=== PATIENT | female | born 1975 ===

== ENCOUNTER → 2017-05-29 | Outpatient (CLI) | payer BC | LOC: SLR 11:00 | PROVIDERS: ATTEND Specialist | DX: G47.30 Sleep apnea, unspecified (principal); R40.0 Somnolence | CPT/HCPCS: 95810 ==

== ENCOUNTER 2017-05-30 11:00 | Outpatient (CLI) | payer BC | END 2017-05-30 11:01 | disposition home or self-care (01) | LOC: SLR 11:00 | PROVIDERS: ATTEND Specialist | DX: G47.33 Obstructive sleep apnea (adult) (pediatric) (principal); R40.0 Somnolence | CPT/HCPCS: 95811 ==